=== PATIENT | male | born 1945 | race Caucasian/White ===

== ENCOUNTER 2017-03-06 13:28 | Emergency (ER) | payer OTHER ==
[~2017-03-06] VITALS: Ht 177.8 cm; Wt 97.1 kg
[2017-03-06] MEDS ORDERED: ASPirin 81 mg TAB PO ONE (14:00)
[2017-03-06] MEDS ORDERED: NITROGLYCERIN 0.4 MG SL TAB SL ONE (14:30)
[2017-03-06 14:35] LABS: Basophils # (auto) 0.1 uL; Basophils % (auto) 0.3 % (0.0-2.0); DEFINITIVE VIEW TRANSMISSION; Eosinophils # (auto) 0.1 uL; Eosinophils % (auto) 0.5 % (0.0-7.0); Hematocrit 53.5 % (41.0-53.0); Lymphocytes # (auto) 2.5 uL; Lymphocytes % (auto) 14.8 % (10.0-50.0); Mean Corpuscular Hemoglobin 29.9 pg (28.0-32.0); Mean Corpuscular Hgb Conc. 33.6 g/dL (32.0-36.0); Mean Corpuscular Volume 88.8 fL (80.0-100.0); Mean Platelet Volume 8.8 fL (7.4-10.4); Monocytes # (auto) 1.4 uL; Monocytes % (auto) 8.1 % (0.0-12.0); Neutrophils % (auto) 76.3 % (37.0-80.0); Platelet Count (auto) 272 10^3/uL (140-450); Red Cell Distribution Width 13.7 % (11.6-16.0)
[2017-03-06 14:50] LABS: INR 1.03 (0.9-1.15); Partial Thromboplastin Time 27.9 sec (22.64-33.71); Prothrombin Time 11.2 sec (9.37-12.3)
[2017-03-06] MEDS ORDERED: MORPHINE SULFATE 4 MG/ML SYRG IV ONE (15:00)
[2017-03-06] MEDS ORDERED: ONDANSETRON HCL 4 MG/2 ML VIAL IV ONE (15:00)
[2017-03-06] MEDS ORDERED: PANTOPRAZOLE SODIUM 40 MG/10 ML VIAL IV ONE (15:00)
[2017-03-06 15:19] LABS: Albumin 3.3 g/dL (3.4-5.0); B-Type Natriuretic Peptide 166.74 pg/mL (0-100); BUN/Creatinine Ratio 28.8; Bilirubin, Total 0.4 mg/dL (0.2-1.0); Calcium 8.4 mg/dL (8.5-10.1); Potassium 4.5 mmol/L (3.5-5.1); Temperature: 23.8 C (20.0-25.0); Total Protein 6.3 g/dL (6.4-8.2)
[2017-03-06] MEDS ORDERED: SODIUM CHLORIDE 0.9% 1,000 ML IV ONE (15:19)
[2017-03-06 15:27] VITALS: BP 115/56
[2017-03-06] MEDS ORDERED: FUROSEMIDE 40 MG/4 ML VIAL IV ONE (15:45)
== END 2017-03-06 15:58 | disposition left against medical advice (07) ==
LOC: EDBD 13:28 → ER 13:30
DX: I11.0 Hypertensive heart disease with heart failure (principal); I50.9 Heart failure, unspecified; Z95.1 Presence of aortocoronary bypass graft; Z88.8 Allergy status to other drugs, medicaments and biological substances; I25.2 Old myocardial infarction
CPT/HCPCS: 36415; 80053; 83880; 84443; 84484; 85025; 85610; 85730; 96361; 96374; 96375; 99284; C9113; J2270; J2405; J7030

== ENCOUNTER 2022-10-01 08:15 | Emergency (ER) | payer OTHER ==
[~2022-10-01] VITALS: Ht 177.8 cm; Wt 97.7 kg
[2022-10-01] MEDS ORDERED: ONDANSETRON HCL 4 MG/2 ML VIAL IV ONE (08:30)
[2022-10-01] MEDS ORDERED: MORPHINE SULFATE INJ 2 MG/ml SYRG IV ONE (08:30)
[2022-10-01 09:11] LABS: Albumin 3.3 g/dL (3.4-5.0); Calcium 9.2 mg/dL (8.5-10.1)
[2022-10-01 09:14] LABS: BUN/Creatinine Ratio 32.2; Bilirubin, Total 0.9 mg/dL (0.2-1.0); Total Protein 5.6 g/dL (6.4-8.2)
[2022-10-01 09:47] LABS: Basophils # (auto) 0 10 ^3/uL (0-0.2); Basophils % (auto) 0.1 % (0.0-2.0); Eosinophils # (auto) 0 10 ^3/uL (0-0.8); Lymphocytes # (auto) 0.2 10 ^3/uL (0.4-5.4); Mean Corpuscular Hgb Conc. 28.8 g/dL (32.0-36.0); Mean Corpuscular Volume 62.7 fL (80.0-100.0); Neutrophils # (auto) 20.4 10 ^3/uL (1.6-8.6); Nucleated Red Blood Cells % 0.6 %
[2022-10-01 09:49] LABS: Hematocrit 34.8 % (41.0-53.0); Lymphocytes % (auto) 1.1 % (10.0-50.0); Monocytes # (auto) 0.8 10 ^3/uL (0-1.3); Monocytes % (auto) 3.8 % (0.0-12.0); Red Blood Cells 5.55 10^6/uL (4.5-5.90); White Blood Cell 21.5 10^3/uL (4.4-10.8)
[2022-10-01 09:50] LABS: Red Cell Distribution Width 21.1 % (11.8-14.3)
[2022-10-01] MEDS ORDERED: ENOXAPARIN SOD 100 MG/1 ML SYRINGE SC ONE (12:00)
[2022-10-01] MEDS ORDERED: cefTRIAXone 1GM/50ML D5W 50 ML IV ONE (12:00)
[2022-10-01 12:46] LABS: Lactic Acid w/Reflex 2.2 mmol/L (0.4-2.0)
[2022-10-01] MEDS ORDERED: HYDROcodone-ACET 10/325MG TAB PO PRN (14:45)
[2022-10-01] MEDS ORDERED: FUROSEMIDE 20 MG TAB PO ONE (14:45)
[2022-10-01] MEDS ORDERED: SODIUM CHLORIDE 0.9% 250 ML IV ONE (15:00)
[2022-10-01 20:14] LABS: Urine Bacteria FEW /hpf (None Seen); Urine Blood Negative /uL (Negative); Urine Hyaline Cast MOD /lpf (0 - 2); Urine Specific Gravity 1.014 (1.001-1.035); Urine WBC <1 /hpf (0 - 3)
[2022-10-02] MEDS ORDERED: HYDROcodone-ACET 5/325MG TAB PO ONE (01:00)
[2022-10-02 02:09] VITALS: BP 114/74
== END 2022-10-02 02:20 | disposition short-term general hospital (02) ==
LOC: EDUNIT# 08:15 → EDBD 08:15 → ER 08:15
DX: S33.5XXA Sprain of ligaments of lumbar spine, initial encounter (principal); G89.29 Other chronic pain; M54.50 Low back pain, unspecified; I11.0 Hypertensive heart disease with heart failure; I50.9 Heart failure, unspecified; I48.91 Unspecified atrial fibrillation; K21.9 Gastro-esophageal reflux disease without esophagitis; J44.9 Chronic obstructive pulmonary disease, unspecified; Z95.1 Presence of aortocoronary bypass graft; Z90.49 Acquired absence of other specified parts of digestive tract; Z88.8 Allergy status to other drugs, medicaments and biological substances; Z20.822 Contact with and (suspected) exposure to COVID-19; X58.XXXA Exposure to other specified factors, initial encounter; Y93.89 Activity, other specified; Y92.89 Other specified places as the place of occurrence of the external cause; Y99.8 Other external cause status
CPT/HCPCS: 36415; 71045; 72131; 80053; 81001; 83605; 83880; 84484; 85025; 87040; 87426; 96365; 96375; 99285; J0696; J2270; J2405; J7030